=== PATIENT | male | born 1960 | race African-American/Black ===

== ENCOUNTER 2018-12-23 23:06 | Inpatient (IN) | payer MEDICARE, OTHER ==
[~2018-12-23] VITALS: Ht 188 cm; Wt 186.0 kg
[~2018-12-23 23:06] MED LIST: ALDACTONE; BENAZEPRIL; BENZ1TAB7; HCTZ; KCL; RISP2; SPIR1TAB26; [UNRECOGNIZED DRUG - OTHER]
[2018-12-24 04:28] LABS: BASOPHILS % 0.6 % (0.0-2.0); EOSINOPHILS % 0.8 % (0.0-5.0); HEMATOCRIT. 41.3 % (42.0-52.0); HEMOGLOBIN. 13.6 g/dL (14.0-18.0); LYMPHOCYTES % 11.7 % (20.0-50.0); MEAN CORPUSCULAR HEMOGLOBIN 28.8 pg (28.0-32.0); MEAN CORPUSCULAR VOLUME 87.5 fL (80.0-94.0); MEAN PLATELET VOLUME 9.5 fl (7.4-10.4); MONOCYTES % 8.8 % (2.0-8.0); NEUTROPHILS % 78.1 % (40.0-76.0); PLATELET 328 x1000/uL (130-400); RED BLOOD CELL COUNT 4.72 mill/uL (4.7-6.1); RED CELL DISTRIBUTION WIDTH 14.6 % (11.6-14.6)
[2018-12-24 04:31] LABS: CHLORIDE 100 mEq/L (98-107)
[2018-12-24] MEDS ORDERED: SODIUM CHLORIDE 0.9% 1000ML BAG (SEPSIS BOLUS) IV ONE (05:30)
[2018-12-24] MEDS ORDERED: PIPERACILLIN/TAZ 3.375G PREMIX 50 ML IV NR (05:30)
[2018-12-24] MEDS: VANCOMYCIN 1 G PREMIX 200 ML IV SCH ×3 (05:30→10:57)
[2018-12-24] MEDS ORDERED: METRONIDAZOLE 500 MG PREMIX 100 ML IV ONE (05:30)
[2018-12-24] MEDS ORDERED: PIPERACILLIN/TAZOBACTAM 3.375GM/50ML PREMIX IV ONE (05:30)
[2018-12-24] MEDS ORDERED: INSULIN REGULAR (HUMULIN R) UD 100 UNITS/ML SYR SUBCUT ONE (10:30)
[2018-12-24] MEDS ORDERED: INSULIN REGULAR (HUMULIN R) 300UNITS/3ML SUBCUT NR (10:45)
[2018-12-24 13:16] VITALS: BP 136/70
[2018-12-24] MEDS ORDERED: INSU100I11 SQ (14:34)
[2018-12-24] MEDS ORDERED: ATOR40TA70 MT (14:34)
[2018-12-24] MEDS ORDERED: LISI40TA4 MT (14:34)
[2018-12-24] MEDS ORDERED: ARIP30TA2 MT (14:34)
[2018-12-24] MEDS ORDERED: AMLO10TA80 MT (14:34)
== END 2018-12-24 22:15 | disposition left against medical advice (07) | DRG 872 ==
LOC: ER 23:06 → EDBEDREQ 12-24 06:10 → EDBEDREQTM 12-24 06:10 → ENRESERV 12-24 12:37 → 6WST 12-24 13:56
PROVIDERS: ADMIT Internal Medicine; ATTEND Internal Medicine
DX: A41.9 Sepsis, unspecified organism (principal); L02.31 Cutaneous abscess of buttock; Z68.43 Body mass index [BMI] 50.0-59.9, adult; E11.65 Type 2 diabetes mellitus with hyperglycemia; E78.5 Hyperlipidemia, unspecified; E66.01 Morbid (severe) obesity due to excess calories; K57.90 Diverticulosis of intestine, part unspecified, without perforation or abscess without bleeding; F32.9 Major depressive disorder, single episode, unspecified; G47.30 Sleep apnea, unspecified; Z53.21 Procedure and treatment not carried out due to patient leaving prior to being seen by health care provider; F25.9 Schizoaffective disorder, unspecified; M17.0 Bilateral primary osteoarthritis of knee; G89.29 Other chronic pain; F17.210 Nicotine dependence, cigarettes, uncomplicated; I11.0 Hypertensive heart disease with heart failure; I50.9 Heart failure, unspecified; K64.9 Unspecified hemorrhoids; Z82.49 Family history of ischemic heart disease and other diseases of the circulatory system; Z83.3 Family history of diabetes mellitus; Z79.84 Long term (current) use of oral hypoglycemic drugs; Z91.19 Patient's noncompliance with other medical treatment and regimen; E86.0 Dehydration
CPT/HCPCS: 36415; 71045; 74176; 82962; 83605; 83880; 84145; 84484; 93005; 96374; 99285; J1815; J2543; J3370; J3490; J7030